=== PATIENT | female | born 1980 | race Caucasian/White ===

== ENCOUNTER 2017-02-19 10:44 | Emergency (ER) | payer MEDICAID ==
[~2017-02-19] VITALS: Ht 160 cm; Wt 71.7 kg
[~2017-02-19 10:44] MED LIST: BACT800T5 PO; CEPH500C3 PO; IBUP800T23 PO
[2017-02-19 11:07] VITALS: BP 140/76; PULSE 112; RESP 18; TEMP 101.8; O2SAT 95
[2017-02-19] MEDS ORDERED: SODIUM CHLORIDE 0.9% FLUSH 10 ML FLUSH IVF PRN (11:30)
[2017-02-19] MEDS: SODIUM CHLOR 0.9% 1000 ML INJ 1,000 ML IV SCH ×2 (11:53→13:23)
--- NOTE | 2017-02-19 11:55 | RADRPT ---
EXAM DATE/TIME: 02/19/2017 11:24 [place] COMPARISON: No previous studies available for comparison. INDICATIONS : Cough, pain with cough, fever MEDICAL HISTORY : None. SURGICAL HISTORY : None. ENCOUNTER: Initial ACUITY: 2 days PAIN SCORE: 10/10 LOCATION: Bilateral chest FINDINGS: A single view of the chest demonstrates the lungs to be symmetrically aerated without evidence of mas s, infiltrate or effusion. The cardiomediastinal contours are unremarkable. Osseous structures are intact. CONCLUSION: Normal examination. Akiko Bruno MD on February 19, 2017 at 11:54 Board Certified Radiologist. This report was verified electronically.
[2017-02-19] MEDS ORDERED: IBUPROFEN 800 MG TAB PO ONE (12:00)
[2017-02-19 12:05] LABS: BASOPHIL % 0.5 % (0.0-2.0); EOSINOPHIL % 0.3 % (0.0-4.0); HEMATOCRIT 38.7 % (35.0-46.0); HEMO FLAGS DIFF FINAL; LYMPH % 13.2 % (9.0-44.0); LYMPHOCYTE # 0.9 TH/MM3 (1.0-4.8); MEAN CELL VOLUME 85.2 FL (80.0-100.0); MEAN CORPUSCULAR HEMOGLOBIN 28.8 PG (27.0-34.0); MEAN CORPUSCULAR HGB CONC 33.8 % (32.0-36.0); MONO % 10.2 % (0.0-8.0); NEUT % 75.8 % (16.0-70.0); PLATELET COUNT 195 TH/MM3 (150-450); RED BLOOD COUNT 4.55 MIL/MM3 (4.00-5.30); RED CELL DISTRIBUTION WIDTH 13.1 % (11.6-17.2); WHITE BLOOD COUNT 6.6 TH/MM3 (4.0-11.0)
[2017-02-19 12:05] LABS: BLOOD, URINE LARGE (NEG); GLUCOSE,URINE NEG (NEG); KETONE, URINE TRACE mg/dL (NEG); NITRITE,URINE NEG (NEG)
[2017-02-19 12:14] LABS: METHOD OF COLLECTION CLEAN CATCH; RBC, URINE 100-200 /hpf (0-3); SQUAMOUS EPITHELIAL CELL URINE > 8 /hpf (0-5); URINE COLOR YELLOW (YELLW/STRAW)
[2017-02-19 12:15] LABS: BACTERIA, URINE FEW /hpf; COMMENT (UR) CULTURE INDICATED; CULTURE IF INDICATED CULTURE INDICATED
[2017-02-19 12:20] LABS: POTASSIUM 3.4 MEQ/L (3.5-5.1)
[2017-02-19 12:23] LABS: BICARBONATE 28.4 MEQ/L (21.0-32.0)
[2017-02-19] MEDS ORDERED: VENTAER INH (13:01)
[2017-02-19] MEDS ORDERED: LEVA750T9 PO (13:01)
[2017-02-19] MEDS ORDERED: BENZ100 PO (13:01)
--- NOTE | 2017-02-19 13:02 | PD ---
HPI Chief Complaint: Cold / Flu Symptoms Time Seen by Provider: 11:12 Travel History International Travel<30 days: No Contact w/Intl Traveler<30days: No Traveled to known affect area: No History of Present Illness HPI 37-year-old female presents to the emergency department for evaluation of cough , fever, sore throat, body aches, dysuria times one day. She denies sick contacts at home. She denies foreign travel. She denies chest pain, shortness of breath, abdominal pain, nausea vomiting or diarrhea. Symptom severity is moderate. No alleviating factors. She reports similar symptoms in the past with influenza. PFSH Past Medical History Hx Anticoagulant Therapy: No Heart Rhythm Problems: Yes ("PALPITATIONS") Cardiovascular Problems: Yes (palpatations) Chemotherapy: No Cerebrovascular Accident: No Diabetes: No Diminished Hearing: No Headaches: Yes Musculoskeletal: Yes (HERNIATED DISCS) Respiratory: No Immunizations Current: Yes Thyroid Disease: Yes (NOT ON MEDICATION) Tetanus Vaccination: < 5 Years Influenza Vaccination: No ?: Not LMP: 02/16/17 : 2 Para: 2 Past Surgical History Cholecystectomy: Yes Hysterectomy: No Social History Alcohol Use: No Tobacco Use: Yes ( 1/2-1 PPD) Substance Use: No Allergies-Medications (Allergen,Severity, Reaction): Coded Allergies: No Known Allergies (Unverified , 02/24/17) Reported Meds & Prescriptions Reported Meds & Active Scripts Active Bactrim DS (Sulfamethoxazole-Trimethoprim) 800-160 Mg Tab 1 Tab PO BID Tessalon Perles (Benzonatate) 100 Mg Cap 100 Mg PO TID PRN 5 Days Ventolin Hfa 18 GM Inh (Albuterol Sulfate) 90 Mcg/Act Aer 2 Puff INH Q4-6H PRN Levaquin (Levofloxacin) 750 Mg Tablet 750 Mg PO DAILY 5 Days Review of Systems Except as stated in HPI: all other systems reviewed are Neg General / Constitutional: Positive: Fever HENT: Positive: Sore Throat Respiratory: Positive: Cough Genitourinary: Positive: Dysuria Musculoskeletal: Positive: Myalgias Physical Exam Narrative GENERAL: Alert female who appears uncomfortable SKIN: Focused skin assessment warm/dry. No rash. HEAD: Atraumatic. Normocephalic. EYES: Pupils equal and round. No scleral icterus. No injection or drainage. ENT: No nasal bleeding or discharge. Mucous membranes pink and moist. Posterior pharyngeal erythema. No tonsillar hypertrophy or exudate. Uvula is midline. NECK: Trachea midline. No JVD. No meningismus. CARDIOVASCULAR: Regular rate and rhythm. No murmur appreciated. RESPIRATORY: No accessory muscle use. Clear to auscultation. Breath sounds equal bilaterally. GASTROINTESTINAL: Abdomen soft, non-tender, nondistended. Hepatic and splenic margins not palpable. MUSCULOSKELETAL: No obvious deformities. No clubbing. No cyanosis. No edema. NEUROLOGICAL: Awake and alert. No obvious cranial nerve deficits. Motor grossly within normal limits. Normal speech. PSYCHIATRIC: Appropriate mood and affect; insight and judgment normal. Data Data Last Documented VS Orders Orders Basic Metabolic Panel (Bmp) (02/19/17 11:18) Complete Blood Count With Diff (02/19/17 11:18) Lactic Acid Sepsis Protocol (02/19/17 11:18) Influenzae A/B Antigen (02/19/17 11:18) Urinalysis - C+S If Indicated (02/19/17 11:18) Blood Culture (02/19/17 11:18) Chest, Single Ap (02/19/17 11:18) Iv Access Insert/Monitor (02/19/17 11:18) Sodium Chlor 0.9% 1000 Ml Inj (Ns 1000 M (02/19/17 11:18) Sodium Chloride 0.9% Flush (Ns Flush) (02/19/17 11:30) Ibuprofen (Motrin) (02/19/17 12:00) Urine Culture (02/19/17 11:30) Labs Laboratory Tests Test 02/19/17 11:30 02/19/17 11:50 Urine Collection Type CLEAN CATCH Urine Color YELLOW Urine Turbidity SLIGHT Urine pH 6.0 Urine Specific [place] 1.022 Urine Protein TRACE mg/dL Urine Glucose (UA) NEG mg/dL Urine Ketones TRACE mg/dL Urine Occult Blood LARGE Urine Nitrite NEG Urine Bilirubin NEG Urine Leukocyte Esterase TRACE Urine RBC 100-200 /hpf Urine WBC 20-24 /hpf Urine Squamous Epithelial Cells > 8 /hpf Urine Bacteria FEW /hpf Urine Yeast (Budding) Microscopic Urinalysis Comment CULTURE INDICATED Urine Collection Time 11:30 White Blood Count 6.6 TH/MM3 Red Blood Count 4.55 MIL/MM3 Hemoglobin 13.1 GM/DL Hematocrit 38.7 % Mean Corpuscular Volume 85.2 FL Mean Corpuscular Hemoglobin 28.8 PG Mean Corpuscular Hemoglobin Concent 33.8 % Red Cell Distribution Width 13.1 % Platelet Count 195 TH/MM3 Mean Platelet Volume 8.9 FL Neutrophils (%) (Auto) 75.8 % Lymphocytes (%) (Auto) 13.2 % Monocytes (%) (Auto) 10.2 % Eosinophils (%) (Auto) 0.3 % Basophils (%) (Auto) 0.5 % Neutrophils # (Auto) 5.0 TH/MM3 Lymphocytes # (Auto) 0.9 TH/MM3 Monocytes # (Auto) 0.7 TH/MM3 Eosinophils # (Auto) 0.0 TH/MM3 Basophils # (Auto) 0.0 TH/MM3 CBC Comment DIFF FINAL Differential Comment Blood Urea Nitrogen 10 MG/DL Creatinine 0.77 MG/DL Random Glucose 94 MG/DL Calcium Level 8.5 MG/DL Sodium Level 139 MEQ/L Potassium Level 3.4 MEQ/L Chloride Level 104 MEQ/L Carbon Dioxide Level 28.4 MEQ/L Anion Gap 7 MEQ/L Estimat Glomerular Filtration Rate 85 ML/MIN Lactic Acid Level 1.1 mmol/L MDM Medical Decision Making Medical Screen Exam Complete: Yes Emergency Medical Condition: Yes Interpretation(s) CBC: Unremarkable. BMP: Unremarkable Lactic acid: 1 UA: Positive for leukocytes,20-24 WBCs, positive bacteria Influenza: Negative Chest x-ray: No acute disease Differential Diagnosis Pneumonia, influenza, UTI, viral infection Narrative Course 37-year-old female presents emergency department for evaluation of cough, fever , sore throat, body aches, dysuria times one day. She denies sick contacts at home. She denies foreign travel. Initially patient was febrile at 101.8 and tachycardic with a heart rate of 112. IV access established, labs ordered and pending, IV fluids administered, Motrin administered. Patient will be observed in the emergency department and reevaluated. Patient's chest x-ray and lab work were essentially unremarkable. Her UA was positive for infection. I believe that the patient has a viral illness as well as UTI. After 2 L of fluid and anti-pyretics patient reports feeling symptom improvement and is requesting discharge. Her vital signs stabilized. She was advised to follow- up with her primary doctor for recheck in one to 2 days. Patient verbalizes understanding and agrees to plan Diagnosis Primary Impression: UTI (urinary tract infection) Qualified Codes: N30.00 - Acute cystitis without hematuria Additional Impression: Viral respiratory illness Referrals: Primary Care Physician Additional Instructions: Take the medication as prescribed. Stay well hydrated by drinking plenty of fluids. Take [id number] Motrin and/or Tylenol as needed for fever and body aches. Follow-up with her doctor in 2 days for recheck. Return to the emergency department if he developed new or worsening symptoms. Scripts Benzonatate (Tessalon Perles) 100 Mg Cap 100 MG PO TID Y for COUGH for 5 Days, CAP 0 Refills Prov: Bridget De Leon 02/19/17 Albuterol 18 GM Inh (Ventolin Hfa 18 GM Inh) 90 Mcg/Act Aer 2 PUFF INH Q4-6H Y for SHORTNESS OF BREATH, #1 INHALER 0 Refills Prov: Bridget De Leon 02/19/17 Levofloxacin (Levaquin) 750 Mg Tablet 750 MG PO DAILY for Infection for 5 Days, #5 TAB 0 Refills Prov: Bridget De Leon 02/19/17 Disposition: 01 DISCHARGE HOME Bridget De Leon Feb 19, 2017 13:02
[2017-02-19 14:07] VITALS: BP 109/57; PULSE 103; RESP 20; TEMP 99.4; O2SAT 94
== END 2017-02-19 14:15 | disposition home or self-care (01) ==
LOC: PHEFT 10:44
DX: N30.00 Acute cystitis without hematuria (principal); B34.9 Viral infection, unspecified; F17.210 Nicotine dependence, cigarettes, uncomplicated
CPT/HCPCS: 71010; 80048; 81001; 83605; 85025; 87040; 87086; 87804; 96360; 96361; 99284; J7030

== ENCOUNTER 2017-02-24 06:43 | Emergency (ER) | payer MEDICAID ==
[~2017-02-24] VITALS: Ht 160 cm; Wt 72.4 kg
[~2017-02-24 06:43] MED LIST changes: -BACT800T5 PO; +BENZ100 PO; -CEPH500C3 PO; -IBUP800T23 PO; +LEVA750T9 PO; +VENTAER INH
[2017-02-24 06:50] VITALS: BP 120/64; PULSE 50; RESP 16; TEMP 97.9; O2SAT 98
--- NOTE | 2017-02-24 07:18 | PD ---
HPI Chief Complaint: Skin Problem Time Seen by Provider: 07:13 Travel History International Travel<30 days: No Contact w/Intl Traveler<30days: No Traveled to known affect area: No History of Present Illness HPI Patient is a 37-year-old female presents emergency department for evaluation of left facial wound and mild swelling. Patient states that a few days ago she was at [place] and had an upper respiratory infection that she was on Levaquin for, she felt somewhat tired and decided to lay down at the park and rest her head on a rock. She states that when she got up she noticed the rock had abraded her skin just slightly. She didn't think anything of it at the time but related that it began to swell and her ever so slightly and particularly in front of her ear on the left side. She states her fatigue has resolved, she is finished her Levaquin. No fevers no nausea vomiting no diarrhea no headache. Symptoms are moderate, gradually worsening. PFSH Past Medical History Hx Anticoagulant Therapy: No Heart Rhythm Problems: Yes ("PALPITATIONS") Cardiovascular Problems: Yes (palpatations) Chemotherapy: No Cerebrovascular Accident: No Diabetes: No Diminished Hearing: No Headaches: Yes Musculoskeletal: Yes (HERNIATED DISCS) Respiratory: No Immunizations Current: Yes Thyroid Disease: Yes (NOT ON MEDICATION) ?: Not LMP: 02/16/2017 : 2 Para: 2 Past Surgical History Cholecystectomy: Yes Hysterectomy: No Social History Alcohol Use: Yes (RARE) Tobacco Use: No (RECENTLY QUIT) Substance Use: No Allergies-Medications (Allergen,Severity, Reaction): Coded Allergies: No Known Allergies (Unverified , 02/24/17) Reported Meds & Prescriptions Reported Meds & Active Scripts Active Bactrim DS (Sulfamethoxazole-Trimethoprim) 800-160 Mg Tab 1 Tab PO BID Tessalon Perles (Benzonatate) 100 Mg Cap 100 Mg PO TID PRN 5 Days Ventolin Hfa 18 GM Inh (Albuterol Sulfate) 90 Mcg/Act Aer 2 Puff INH Q4-6H PRN Levaquin (Levofloxacin) 750 Mg Tablet 750 Mg PO DAILY 5 Days Review of Systems Except as stated in HPI: all other systems reviewed are Neg Physical Exam Narrative GENERAL: Well-nourished, well-developed patient. SKIN: Focused skin assessment warm/dry. There is some abraded area to the left face over the maxilla, approximately quarter-sized area in total. There is also some anterior reticular lymphadenopathy. No obvious erythema no obvious abscess. No intraoral extension. Neck is supple. HEAD: Normocephalic. EYES: No scleral icterus. No injection or drainage. NECK: Supple, trachea midline. No JVD or lymphadenopathy. CARDIOVASCULAR: Regular rate and rhythm without murmurs, gallops, or rubs. RESPIRATORY: Breath sounds equal bilaterally. No accessory muscle use. GASTROINTESTINAL: Abdomen soft, non-tender, nondistended. MUSCULOSKELETAL: No cyanosis, or edema. BACK: Nontender without obvious deformity. No CVA tenderness. Data Data Last Documented VS Vital Signs Date Time Temp Pulse Resp B/P (MAP) Pulse Ox O2 Delivery O2 Flow Rate FiO2 02/24/17 07:27 02/24/17 06:50 97.9 50 16 98 MDM Medical Decision Making Medical Screen Exam Complete: Yes Emergency Medical Condition: Yes Differential Diagnosis Abrasion, cellulitis, lymphadenopathy, abscess is excluded clinically Narrative Course Patient roomed in emergency department, she appears well and in no distress. The abrasion itself looks like it's healing well however there is some anterior auricular lymphadenopathy. We'll therefore place her on antibiotics. Discussed signs symptoms that should prompt return to ED and symptomatic management home. She was offered pain medicine and declined. Diagnosis Primary Impression: Cellulitis of face Additional Impression: Lymphadenopathy of head and neck Referrals: [facility] Additional Instructions: Follow up with your regular physician or the [facility] in 1-2 weeks. Med/Other Pt SpecificInfo: Prescription(s) given Scripts Sulfamethoxazole-Trimethoprim (Bactrim DS) 800-160 Mg Tab 1 TAB PO BID for Infection, #14 TAB 0 Refills Prov: Kush Rogers MD 02/24/17 Disposition: 01 DISCHARGE HOME Condition: Stable Kush Rogers MD Feb 24, 2017 07:18
[2017-02-24] MEDS ORDERED: BACT800T5 PO (07:19)
== END 2017-02-24 07:28 | disposition home or self-care (01) ==
LOC: PHED 06:43
DX: L03.211 Cellulitis of face (principal); R59.1 Generalized enlarged lymph nodes; R00.2 Palpitations; E07.9 Disorder of thyroid, unspecified
CPT/HCPCS: 99283